=== PATIENT | female | born 1995 | race American Indian/Alaskan Native ===

== ENCOUNTER 2019-09-05 10:01 | Emergency (ER) | payer MEDICAID ==
--- NOTE | 2019-09-05 10:38 | Emergency Department Report ---
ED Female HPI - General Chief complaint: Urogenital-Female Stated complaint: VAGINAL DISCOMFORT Time Seen by Provider: 09/05/19 10:33 Source: patient Mode of arrival: Ambulatory Limitations: No Limitations - History of Present Illness Complaint: vaginal discharge (described as whitish associated with itching.) -: week(s) (2) Location: suprapubic Severity: mild Consistency: intermittent Improves with: none Are you Now?: No - Related Data Sexually active: Yes Allergies Allergy/AdvReac Type Severity Reaction Status Date / Time No Known Allergies Allergy Verified 09/05/19 10:11 ED Review of Systems ROS: Stated complaint: VAGINAL DISCOMFORT Other details as noted in HPI Comment: All other systems reviewed and negative Constitutional: denies: chills, fever Respiratory: denies: cough, shortness of breath Gastrointestinal: denies: abdominal pain, nausea, vomiting Neurological: denies: headache, weakness ED Past Medical Hx - Past Medical History Previous Medical History?: No - Surgical History Past Surgical History?: No - Social History Smoking Status: Never Smoker ED Physical Exam - General Limitations: No Limitations General appearance: alert, in no apparent distress - Head Head exam: Present: atraumatic, normocephalic, normal inspection - ENT ENT exam: Present: normal exam, normal orophraynx, mucous membranes moist - Neck Neck exam: Present: normal inspection - Respiratory Respiratory exam: Present: normal lung sounds bilaterally - Cardiovascular Cardiovascular Exam: Present: regular rate, normal rhythm, normal heart sounds - GI/Abdominal GI/Abdominal exam: Present: soft, normal bowel sounds. Absent: distended, tenderness, guarding, rebound, rigid - Extremities Exam Extremities exam: Present: normal inspection - Back Exam Back exam: Absent: CVA tenderness (R), CVA tenderness (L) - Neurological Exam Neurological exam: Present: alert, oriented X3, CN II-XII intact - Psychiatric Psychiatric exam: Present: normal mood - Skin Skin exam: Present: warm, intact, normal color ED Course Vital Signs 09/05/19 10:21 Temperature 98.5 F Pulse Rate 86 Respiratory 16 Rate Blood Pressure 113/60 O2 Sat by Pulse 100 Oximetry Critical care attestation.: If time is entered above; I have spent that time in minutes in the direct care of this critically ill patient, excluding procedure time. ED Disposition Clinical Impression: Vaginal candidiasis, UTI (urinary tract infection) Disposition: TO HOME OR SELFCARE Is pt being admited?: No Condition: Stable Instructions: Urinary Tract Infection in Women (ED), Vulvovaginal Candidiasis (ED) Referrals: PRIMARY CARE, [Primary Care Provider] - 3-5 Days
[2019-09-05 13:06] LABS: Bilirubin,Urine NEG (Negative); Blood,Urine NEG (Negative); Color,Urine Yellow (Yellow); Mucus,Urine FEW /HPF; Protein,Urine <15 mg/dL mg/dL (Negative); Urobilinogen,Urine < 2.0 mg/dL (<2.0)
[2019-09-05 13:07] LABS: HCG Qualitative,Urine Negative (Negative)
[2019-09-05 13:33] VITALS: BP 120/60
== END 2019-09-05 13:32 | disposition home or self-care (01) ==
LOC: ED 10:01
DX: B37.3 Candidiasis of vulva and vagina (principal); N39.0 Urinary tract infection, site not specified
CPT/HCPCS: 81001; 81025; 87086

== ENCOUNTER 2022-01-26 12:46 | Emergency (ER) | payer MEDICAID, OTHER ==
[2022-01-26] MEDS ORDERED: TETANUS,DIPH,PERTUSS(ACELL) VACCINE 0.5 ML SYRINGE IM ONE (13:43)
[2022-01-26] MEDS ORDERED: cephALEXin 500 MG CAP PO ONE (13:43)
[2022-01-26] MEDS ORDERED: ACETAMINOPHEN 325 MG TAB PO ONE (13:43)
[2022-01-26] MEDS ORDERED: NEOMY 3.5 MG/BACIT 400 UNITS/POLY B 5000 UNITS/GM OINT PACKET TP ONE (13:43)
[2022-01-26] MEDS ORDERED: SODIUM CHLORIDE 0.9% IRR 500 ML BOTTLE IR ONE (13:43)
--- NOTE | 2022-01-26 13:44 | Emergency Department Report ---
ED Laceration HPI - HPI Chief Complaint: Laceration/Recheck/Suture Stated Complaint: CUT FINGER Time Seen by Provider: 01/26/22 13:43 Occurred When: Today Location: Upper Extremity Severity: mild Tetanus Status: Not up to Date Laceration Symptoms: Yes Pain, No Foreign Body Sensation, No Numbness, No Weakness Other History: Patient is a 26-year-old female who while cutting an avocado punctured her left hand second webspace with a knife. She is neurovascularly intact. Bleeding controlled. She has full range of motion of the fingers. There is a puncture wound in the webspace ED Review of Systems ROS: Stated complaint: CUT FINGER Other details as noted in HPI Comment: All other systems reviewed and negative ED Past Medical Hx - Past Medical History Previous Medical History?: No - Surgical History Past Surgical History?: No - Family History Family history: no significant - Social History Smoking Status: Never Smoker Substance Use Type: None - Medications Home Medications: Home Medications Medication Instructions Recorded Confirmed Last Taken Type cephALEXin [Keflex] 500 mg PO Q12HR #20 cap 01/26/22 Unknown Rx Laceration Physical Exam - Exam General: Vital signs noted. No distress. Alert and acting appropriately. Laceration Location: Upper Extremity Laceration Exam: Yes Normal Distal CMS, No Foreign Body, No Exposed Tendon, Vessel, or Nerve, No Tendon Injury ED Course Vital Signs 01/26/22 13:43 Temperature 98.0 F Pulse Rate 70 Respiratory 18 Rate Blood Pressure 114/69 O2 Sat by Pulse 100 Oximetry ED Medical Decision Making - EKG Data -: EKG Interpreted by Pr - Medical Decision Making Vital Signs 01/26/22 13:43 Temperature 98.0 F Pulse Rate 70 Respiratory 18 Rate Blood Pressure 114/69 O2 Sat by Pulse 100 Oximetry Wound care provided. Tdap updated Medicated for pain Keflex p.o. started, to avoid infection of the tendons and ligaments Has full range of motion of the fingers Patient discharged home with discharge plan of care including diet, activity, medications and follow-up. Patient verbalizes understanding of discharge plan o f care - Differential Diagnosis Puncture wound Critical care attestation.: If time is entered above; I have spent that time in minutes in the direct care of this critically ill patient, excluding procedure time. ED Disposition Clinical Impression: Puncture wound Disposition: HOME / SELF CARE / HOMELESS Is pt being admited?: No Does the pt Need Aspirin: No Condition: Stable Instructions: Puncture Wound Additional Instructions: Medications as ordered today. Keep wound clean and dry. You should clean the wound twice a day with saline, which you can purchase at the drugstore, and soap and then reapply bulky dressing. Keep the wound covered to prevent infection. Motrin or Tylenol for pain Your tetanus was updated today Prescriptions: cephALEXin [Keflex] 500 mg PO Q12HR #20 cap Referrals: GABBY WEATHERS MD [Staff Physician] - 3-5 Days Time of Disposition: 13:53
[2022-01-26 14:20] VITALS: BP 114/78
== END 2022-01-26 14:19 | disposition home or self-care (01) ==
LOC: ED 12:46
DX: S61.231A Puncture wound without foreign body of left index finger without damage to nail, initial encounter (principal); W26.0XXA Contact with knife, initial encounter; Y93.89 Activity, other specified; Y92.89 Other specified places as the place of occurrence of the external cause; Y99.8 Other external cause status
CPT/HCPCS: 90471; 90715; 99282; 99283